=== PATIENT | male | born 1945 | race Caucasian/White ===

== ENCOUNTER 2017-01-07 07:04 | Day surgery (SDC) | payer MEDICARE, OTHER ==
[~2017-01-07 07:04] MED LIST: EPINEPHrine 1:10,000 1 MG/10 ML Syringe ONE; Lactated Ringers 1,000 ML IV SCH; Midazolam 1 MG/ML 2 ML SDV ONE; Propofol 200 MG/20 ML SDV ONE; Sodium Chloride 0.9% 5 ML Syringe FLUSH PRN; fentaNYL 100 MCG/2 ML SDV ONE
[2017-01-07] MEDS ORDERED: fentaNYL 100 MCG/2 ML SDV ONE (08:05)
[2017-01-07] MEDS ORDERED: Midazolam 1 MG/ML 2 ML SDV ONE (08:05)
[2017-01-07] MEDS ORDERED: Propofol 200 MG/20 ML SDV ONE (08:05)
--- NOTE | 2017-01-07 08:35 | PCM.OPNOTE ---
- General Post-Op/Procedure Note Date of Surgery/Procedure: 01/07/17 Operative Procedure(s): Upper GI endoscopy and biopsies Findings: Moderate GERD is noted. Anesthesia Technique: MAC Primary Surgeon: Sree Calix Complications: None Condition: Good Free Text/Narrative:: INFORMED CONSENT: Patient is here today for elective upper GI endoscopy. All aspects of this procedure have been discussed with the patient. All possible complications also, including possibility of perforation, infection, pain, bleeding, numbness of the throat, swallowing difficulty and unknown complications. In the event of perforation the patient may need surgical exploration to repair the defect. The patient understands fully well. Patient did not have any further questions for me at the end of my interview. The patient wishes for me to proceed. INSTRUMENT USED: Video gastroscope ANESTHESIA: [MAC] ASA CLASSIFICATION: [2] PROCEDURE PERFORMED: [upper gastrointestinal endoscopy with biopsies] PHARYNX: Normal. ESOPHAGUS: Normal. Proximal: Normal. Middle: Normal. Lower: Normal. GE Junction: Moderate GERD noted. Biopsies taken.. STOMACH: Normal. Cardia: Normal. Fundus: Normal. Lesser Curvature: Normal. Greater Curvature: Normal. Antrum: Mild antral gastritis noted.. Pylorus: Normal. DUODENUM: Normal. First Part: Normal. Second Part: Normal. Third Part: Normal. RETROFLEXION: Normal. BIOPSY: at GE junction.. TOLERANCE: Excellent. COMPLICATIONS: None.
[2017-01-07 09:05] VITALS: BP 99/59
[2017-01-07] MEDS ORDERED: Propofol 200 MG/20 ML SDV IV ONE (14:39)
== END 2017-01-07 10:30 | disposition home or self-care (01) ==
LOC: KA.SDS 07:04
PROVIDERS: ATTEND Family Medicine
DX: K21.9 Gastro-esophageal reflux disease without esophagitis (principal); E78.2 Mixed hyperlipidemia; Z90.49 Acquired absence of other specified parts of digestive tract; Z79.899 Other long term (current) drug therapy
CPT/HCPCS: 00750; 00810; 88305; J2250; J2704; J3010; J7120